=== PATIENT | male | born 1965 | race Caucasian/White ===

== ENCOUNTER 2016-12-06 10:59 | Observation (INO) | payer OTHER ==
[~2016-12-06] VITALS: Ht 175.3 cm; Wt 97.7 kg
[2016-12-06 11:12] LABS: CREATININE 0.7 mg/dL (0.6-1.3)
[2016-12-06 11:32] LABS: EOSINOPHIL (%) 0.1 % (0-5); HEMATOCRIT 43.9 % (38.0-50.0); IMMATURE GRANULOCYTE (%) 0.6 % (0.0-0.7); IMMATURE GRANULOCYTE COUNT 0.1 K/uL; INSTRUMENT ABS NEUTROPHIL CT 9.9 K/uL; LYMPHOCYTE COUNT 1.2 K/uL (1.0-2.8); MCH 32.7 PG (29.0-34.0); MCHC 34.2 G/DL (30.0-36.0); MCV 95.6 FL (86-99); MEAN PLAT.VOLUME 10.6 uM^3 (9.0-12.4); MONOCYTE COUNT 0.8 K/uL (0-0.8); NEUTROPHIL (%) 82.2 % (45-76); NEUTROPHIL COUNT 9.9 K/uL (1.8-6.4); PLATELET COUNT 134 K/uL (156-360); RBC DIS.WIDTH-CV 12.1 % (11.8-14.6); RBC DIS.WIDTH-SD 42.6 % (39-53); RED BLOOD COUNT 4.59 M/uL (4.00-5.50)
[2016-12-06 11:44] LABS: AMYLASE 93 IU/L (1-118); CHLORIDE 102 mEq/L (99-109); POTASSIUM 4.5 mEq/L (3.7-5.4); SODIUM 137 mEq/L (136-147)
[2016-12-06 11:46] LABS: GLUCOSE 78 mg/dL (70-99)
[2016-12-06 11:47] LABS: ANION GAP 14 MEQ/L (2-14)
[2016-12-06 11:49] LABS: SERUM ETHYL ALCOHOL < 10 mg/dL
[2016-12-06 11:50] LABS: GFR ESTIMATE (CALCULATED) > 59 mL/min/
[2016-12-06 11:51] LABS: UREA NITROGEN (BUN) 10 mg/dL (9-23)
[2016-12-06 11:53] LABS: LIPASE 22 U/L (1.0-51.0)
[2016-12-06 12:16] LABS: POINT-OF-CARE METER ID UU13113702
[2016-12-06] MEDS ORDERED: GLUCOPHAGE1000 MG PO (14:53)
[2016-12-06] MEDS ORDERED: NORVASC5 MG PO (14:54)
[2016-12-06] MEDS ORDERED: NEURONTIN300 MG PO (14:54)
[2016-12-06] MEDS ORDERED: LANTUS 10100 UNITS/ SC (14:56)
[2016-12-06] MEDS ORDERED: NOVOLOG 10100 UNITS/ SC (14:57)
[2016-12-06 21:11] VITALS: BP 136/91
[2016-12-06 21:15] VITALS: BP 136/91
[2016-12-06 21:52] LABS: POINT-OF-CARE METER ID UU14174217
[2016-12-06 22:00] VITALS: BP 126/80
[2016-12-06 22:51] LABS: METH RESISTANT S AUREUS PCR NEGATIVE (NEGATIVE)
[2016-12-06 22:56] LABS: PROBE CHECK PASS; SPECIMEN PROCESSING CONTROL PASS
[2016-12-06 23:00] VITALS: BP 128/77
[2016-12-07] VITALS (13 sets, daily range): BP systolic 115–139; BP diastolic 67–92
[2016-12-07 05:20] LABS: POINT-OF-CARE METER ID UU13113803
[2016-12-07 06:22] LABS: ALKALINE PHOSPHATASE 62 IU/L (3-129); ANION GAP 9 MEQ/L (2-14); CHLORIDE 101 MEQ/L (99-109); GFR ESTIMATE (CALCULATED) > 59 mL/min/; POTASSIUM 3.9 MEQ/L (3.7-5.4); SAMPLE HEMOLYSIS CHECK 0; SAMPLE ICTERIC CHECK 0; SAMPLE LIPEMIA CHECK 0; SODIUM 135 MEQ/L (136-147); TOTAL BILIRUBIN 1.3 MG/DL (0.0-1.0); UREA NITROGEN (BUN) 8 mg/dL (9-23)
[2016-12-07 06:23] LABS: GLUCOSE 109 mg/dL (70-99)
[2016-12-07 06:25] LABS: MCH 32.7 PG (29.0-34.0); MCHC 34.1 G/DL (30.0-36.0); MCV 96.1 FL (86-99); MEAN PLAT.VOLUME 10.6 uM^3 (9.0-12.4); PLATELET COUNT 120 K/uL (156-360); RBC DIS.WIDTH-CV 12.4 % (11.8-14.6); RBC DIS.WIDTH-SD 43.7 % (39-53); RED BLOOD COUNT 3.85 M/uL (4.00-5.50)
[2016-12-07 06:27] LABS: WHITE BLOOD COUNT 6.2 K/uL (4.1-10.2)
[2016-12-07 12:22] LABS: POINT-OF-CARE METER ID UU14174217
[2016-12-07 21:41] LABS: POINT-OF-CARE METER ID UU14149397
[2016-12-08 06:45] LABS: GFR ESTIMATE (CALCULATED) > 59 mL/min/; UREA NITROGEN (BUN) 10 mg/dL (9-23)
[2016-12-08 07:31] LABS: POINT-OF-CARE METER ID UU14149397
[2016-12-08 08:06] VITALS: BP 124/84
[2016-12-08] MEDS ORDERED: HYDROCODON-ACE1 EAC9 PO (15:30)
[2016-12-08 17:10] VITALS: BP 125/85
== END 2016-12-08 17:59 | disposition home or self-care (01) ==
LOC: TRA 10:59 → EDOF 15:02 → 4WEST 15:02 → EDOF 15:02 → 4WEST 20:48 → 3EAST 12-07 17:35
PROVIDERS: Emergency Medicine; Surgery
PROC: 0HQ1XZZ Repair Face Skin, External Approach (ICD-10-PCS; principal; 2016-12-06)
PROC: 0T9B70Z Drainage of Bladder with Drainage Device, Via Natural or Artificial Opening (ICD-10-PCS; 2016-12-06)
DX: S06.0X1A Concussion with loss of consciousness of 30 minutes or less, initial encounter (principal); S32.119A Unspecified Zone I fracture of sacrum, initial encounter for closed fracture; S42.122A Displaced fracture of acromial process, left shoulder, initial encounter for closed fracture; S01.81XA Laceration without foreign body of other part of head, initial encounter; S02.2XXA Fracture of nasal bones, initial encounter for closed fracture; W10.8XXA Fall (on) (from) other stairs and steps, initial encounter; E11.42 Type 2 diabetes mellitus with diabetic polyneuropathy; I10 Essential (primary) hypertension; R42 Dizziness and giddiness; F11.20 Opioid dependence, uncomplicated; F10.20 Alcohol dependence, uncomplicated; F12.10 Cannabis abuse, uncomplicated
CPT/HCPCS: 70450; 70486; 71260; 72125; 72129; 72132; 73030; 73200; 74177; 80047; 80048; 80053; 81003; 82150; 82565; 82948; 83690; 84520; 85025; 85027; 86850; 86900; 86901; 87641; 93005; C9113; G0378; G0480; J1815; J7120